=== PATIENT | female | born 1965 | race Caucasian/White ===

== ENCOUNTER → 2019-02-17 12:13 | Outpatient (CLI) | payer OTHER, SELFPAY ==
--- NOTE | 2019-02-17 | DI.RAD.S_ITS ---
PROCEDURE: FL BARIUM SWALLOW INDICATIONS: SCREENING MAMMOGRAM,DYSPHAGIA COMPARISON: None. FINDINGS: Function: There is normal esophageal peristalsis. There was moderate spontaneous and elicited gastroesophageal reflux. Morphology: Air-contrast images demonstrate normal mucosal morphology. Single contrast views show no esophageal strictures, extrinsic mass effects, or diverticula. Limited images of the stomach demonstrate normal appearance. IMPRESSION: Moderate spontaneous and elicited gastroesophageal reflux without esophageal mass or stricture. Dictated by: Gera Patel M.D. on 02/17/2019 at 14:05 Approved by: Gera Patel M.D. on 02/17/2019 at 14:06
--- NOTE | 2019-02-17 | DI.MG.S_ITS ---
BILATERAL DIGITAL SCREENING MAMMOGRAM 3D/2D WITH CAD: 02/17/2019 CLINICAL: Baseline exam. Routine screening. No prior exams were available for comparison. The tissue of both breasts is heterogeneously dense. This may lower the sensitivity of mammography. Current study was also evaluated with a Computer Aided Detection (CAD) system. There are grouped fine calcifications in the right breast at 12 o'clock anterior depth. No other significant masses, calcifications, or other findings are seen in either breast. IMPRESSION: INCOMPLETE: NEEDS ADDITIONAL IMAGING EVALUATION The grouped fine calcifications in the right breast are indeterminate. Spot magnification and additional views are recommended. This exam was interpreted at Station ID: [id number]. NOTE: For mammograms, a report in lay terms will be sent to the patient. Approximately 15% of breast malignancies will not be visualized mammographically. In the management of a palpable breast mass, a negative mammogram must not discourage biopsy of a clinically suspicious lesion. Electronically Signed By: Jocy solorio/shannen:02/17/2019 14:41:06 letter sent: Additional Imaging Needed ACR BI-RADS Category 0: Incomplete 3340F
== END ==
PROVIDERS: Visit Provider Physician Assistant Medical
DX: Z12.31 Encounter for screening mammogram for malignant neoplasm of breast (principal); R13.10 Dysphagia, unspecified; K21.9 Gastro-esophageal reflux disease without esophagitis
CPT/HCPCS: 74220; 77063; 77067

== ENCOUNTER → 2019-02-27 08:33 | Outpatient (CLI) | payer OTHER, SELFPAY ==
--- NOTE | 2019-02-27 | DI.MG.S_ITS ---
UNILATERAL RIGHT DIGITAL DIAGNOSTIC MAMMOGRAM 3D/2D WITH ADDITIONAL VIEWS: 02/27/2019 CLINICAL: Additional evaluation requested from prior study. Comparison is made to exam dated: 02/17/2019 [facility]. The tissue of right breast is heterogeneously dense. This may lower the sensitivity of mammography. There are fine calcifications in the right breast at 12 o'clock middle depth which become less grouped with additional views. Their morphology is fine and dystrophic. No other significant masses or calcifications are seen in the breast. IMPRESSION: PROBABLY BENIGN The calcifications in the right breast are probably benign given their redistribution on additional views. Spot magnification views as well as a follow-up mammogram in 6 months are recommended to demonstrate stability. Findings and recommendations were conveyed to the patient at time of exam. This exam was interpreted at Station ID: [id number]. NOTE: For mammograms, a report in lay terms will be sent to the patient. Approximately 15% of breast malignancies will not be visualized mammographically. In the management of a palpable breast mass, a negative mammogram must not discourage biopsy of a clinically suspicious lesion. Electronically Signed By: Jocy solorio/:02/27/2019 09:14:13 letter sent: Followup Recommended ACR BI-RADS Category 3: Probably benign 3343F
== END ==
PROVIDERS: PCP Physician Assistant Medical; Visit Provider Physician Assistant Medical
DX: R92.8 Other abnormal and inconclusive findings on diagnostic imaging of breast (principal); R92.1 Mammographic calcification found on diagnostic imaging of breast
CPT/HCPCS: 77065; G0279

== ENCOUNTER → 2020-01-15 08:44 | Outpatient (CLI) | payer OTHER, SELFPAY ==
--- NOTE | 2020-01-15 | DI.US.S_ITS ---
PROCEDURE: US PELVIC COMPLETE INDICATIONS: PELVIC PAIN TECHNIQUE: Real-time scanning was performed of the pelvic organs, with image documentation. Additional endovaginal scanning was necessary due to incomplete visualization of the adnexal and endometrial structures by transabdominal scanning. COMPARISON: None. FINDINGS: Transabdominal scanning: Limited scanning through the kidneys shows no hydronephrosis, however, there is a prominent right extrarenal pelvis. Probable nonobstructing calculus is noted within the midpole of the left kidney. Questionable hyperechoic mass most consistent with angiomyolipoma is noted within the upper pole of the left kidney. No pathologic free abdominal or pelvic fluid. Endovaginal scanning: Uterus: Uterus is normal in size at 5.9 x 3.9 x 2.7 cm and has a heterogeneous echotexture. The endometrium measures 4 mm in combined thickness. There is a left posterior subserosal fibroid which measures 2.1 x 1.7 x 1.6 cm and a left posterior intramural fibroid which measures 1.0 x 1.1 x 1.2 cm. There is a heterogeneous 1.1 x 0.7 x 1.6 cm poorly marginated focus within the cervical canal which demonstrates vascularity, although no discrete vascular stalk is noted. Ovaries: The ovaries were not visualized due to overlying bowel gas. IMPRESSION: 1. Questionable endometrial or endocervical polyp as described above. If further characterization is warranted, hysterosonogram could be used. 2. Fibroid uterus. 3. Probable upper pole left angiomyolipoma and nonobstructive nephrolithiasis. Dictated by: aCrmina Zhao M.D. on 01/15/2020 at 12:35 Approved by: Carmina Zhao M.D. on 01/15/2020 at 12:40
--- NOTE | 2020-01-15 | DI.MG.S_ITS ---
BILATERAL DIGITAL DIAGNOSTIC MAMMOGRAM 3D/2D SHORT-TERM FOLLOW-UP: 01/15/2020 CLINICAL: Patient returns for a 6 month follow up of the right breast, due for bilateral exam. Comparison is made to exams dated: 02/27/2019 mammogram and 02/17/2019 mammogram - [facility]. The tissue of both breasts is heterogeneously dense. This may lower the sensitivity of mammography. There are fine calcifications in the right breast at 12 o'clock middle depth. These are not significantly changed. No other significant masses, calcifications, or other findings are seen in either breast. IMPRESSION: PROBABLY BENIGN The fine calcifications in the right breast are probably benign. A follow-up mammogram in 6 months is recommended. A follow-up right mammogram in 6 months is recommended to demonstrate stability. This exam was interpreted at Station ID: [id number]. NOTE: For mammograms, a report in lay terms will be sent to the patient. Approximately 15% of breast malignancies will not be visualized mammographically. In the management of a palpable breast mass, a negative mammogram must not discourage biopsy of a clinically suspicious lesion. Electronically Signed By: Danny Boone M.D. ar/:01/15/2020 09:12:24 letter sent: Followup Recommended ACR BI-RADS Category 3: Probably benign 3343F
== END ==
PROVIDERS: PCP Physician Assistant Medical; Referring Provider Physician Assistant Medical; Visit Provider Physician Assistant Medical
DX: R92.8 Other abnormal and inconclusive findings on diagnostic imaging of breast (principal); R92.1 Mammographic calcification found on diagnostic imaging of breast; R10.2 Pelvic and perineal pain; D25.2 Subserosal leiomyoma of uterus; D25.1 Intramural leiomyoma of uterus
CPT/HCPCS: 76856; 77066; G0279

== ENCOUNTER → 2020-03-02 11:54 | Outpatient (CLI) | payer OTHER, SELFPAY ==
[2020-03-02 13:02] LABS: COVID19 -Nasal RAPID Negative (Negative)
== END ==
PROVIDERS: PCP Physician Assistant Medical; Visit Provider Obstetrics & Gynecology
DX: Z03.818 Encounter for observation for suspected exposure to other biological agents ruled out (principal)
CPT/HCPCS: 87635

== ENCOUNTER 2020-03-04 07:46 | Day surgery (SDC) | payer OTHER, SELFPAY ==
[2020-03-02 12:04] VITALS: BMI 30.2
[2020-03-04] VITALS (9 sets, daily range): BP systolic 92–134; BP diastolic 53–88; PULSE 61–79; RESP 16–20; TEMP 36.3–36.8; O2SAT 94–97; BMI 30.4
--- NOTE | 2020-03-04 | PATH_ITS ---
[facility] Accession Number: [id number] . 01 Material submitted: . uterus - UTERUS AND OVARIES . 01 Clinical history: . OBP . 02 Diagnosis: Uterus and Ovaries, Supracervical Hysterectomy and Bilateral Oophorectomy (Weight 34 grams): Weakly proliferative endometrium with regions of cystic atrophy; negative for glandular hyperplasia, cytologic atypia, or malignancy. Myometrium with multiple intramural and subserosal leiomyomas (2-22 mm in greatest dimension); negative for cytologic atypia or malignancy. Uterine serosa with no significant histomorphologic abnormality. Both ovaries with stromal hyperplasia of uncertain significance. [facility] 03/08/2020 1728 Local . 02 Electronically signed: . Krystal Hernandez MD, Pathologist NPI- [id number] . 01 Gross description: . Received in formalin, labeled uterus and ovaries, and consists of a 34-gram supracervically resected uterus with attached bilateral ovaries. The specimen measures 4.5 cm from the superior fundus to lower uterine segment by 3.5 cm from cornu to cornu by 3.0 cm from anterior to posterior. The serosa is blue-pink, focally hemorrhagic and smooth. Sectioning reveals a 2.0 x 1.0 cm endometrial cavity with a blue-pink glistening to focally ragged endometrium measuring 0.1 cm in thickness. The myometrium is blue-pink and trabeculated measuring 1.0 cm in thickness. There are multiple blue-white whorled leiomyomata ranging from 0.2 to 2.2 cm with no areas of hemorrhage, necrosis or cystic degeneration. The ovaries average 2.5 x 1.5 x 1.0 cm and display a blue-pink cerebriform external surface. Sectioning reveals a blue-pink ovarian stroma. Infantryman sections are submitted. . A1-A2 - lower uterine segment, perpendicular sections. A3-A4 - endomyometrium and serosa. A5-A6 - underwriting account representative leiomyomata. A7-A8 - underwriting account representative ovaries. ([id number]) /MRV 03/05/2020 1444 Local . 02 Pathologist provided ICD-10: R10.2, R10.32, D25.9 . 02 CPT . 643096 Performed at: [facility] [address] [place] [address] [id number] MD Darron Bustillo MD Phone: [phone] Performed at: 02 [facility] [address] [place] [address] [id number] MD Carissa Gutierrez MD Phone: [phone]
[2020-03-04] MEDS: LACTATED RINGERS 1,000 ML 42 ML IV (08:19)
[2020-03-04] MEDS: ACETAMINOPHEN 325 MG TABLET 975 MG PO (08:35)
--- NOTE | 2020-03-04 08:39 | PM.PREOP ---
Pre-operative Note COVID-19 COVID-19 status: Negative Result date/Date tested (Pos, Neg/Pending): 03/02/20 Interval Note History & Physical reviewed/Exam performed by Physician: Yes Changes to H&P: No H&P completed within 30 days and has changed as indicated here:: 03/02/20
[2020-03-04] MEDS: CEFAZOLIN 2 GM/100 ML FROZ.PIGGY IV (08:58)
--- NOTE | 2020-03-04 09:33 | SUR.OPER ---
Lithotomy on padded OR bed. [place] Pad Positioner under torso. Head on pillow, arms padded and tucked at sides. Legs secured in padded yellow fins stirrups.
[2020-03-04] MEDS: BUPIVACAINE 0.5% W/ EPI (PF) 30 ML VIAL INJ (10:07)
[2020-03-04] MEDS: ROPIVACAINE 0.2% PF 2 MG/ML 10ML AMP 20 ML INJ (10:08)
--- NOTE | 2020-03-04 10:55 | P.OP_ITS ---
Operative Date/Time/Diagnoses Date of procedure: 03/04/20 Time of procedure: 10:55 Pre-op diagnosis: Fibroid uterus Left lower quadrant pain Pelvic pain Post-op diagnosis: same Procedure & Clinicians Procedure: Procedures Operation Date: 03/04/20 08:45 Actual Procedures Side Surgeon p Laparoscopic Supracervical Hysterectomy w/ bilateral oophorectomy, lysis of adhesions Kristal Garcia MD Indications: Fibroid uterus Left lower quadrant pain Pelvic Surgeon: Kristal Garcia Bargain Table Clerk: Zonia Vidal Anesthesia Type: General and Local Operative Notes Findings: Five week size multi fibroid uterus. 5 cm pedunculated fibroid off the fundus of the uterus Multiple smaller fibroids off the posterior uterus Normal ovaries Status post removal of both tubes previously Adhesions between colon and the pedunculated fibroid Closure Type: primary Specimen(s): uterus and other (Bilateral ovaries) Applied: catheter (Removed at the end of the case) Estimated blood loss (mL): 20 Blood products transfused: none Procedure in detail: The patient was taken to the operating room where she was placed in the dorsal supine position. After adequate general endotracheal anesthesia was achieved, she was placed in the dorsal lithotomy position, and prepped and draped in the usual sterile fashion. A timeout was performed. A bivalve speculum was placed into the vagina and the anterior lip of the cervix grasped with a single-tooth tenaculum. The cervical os was sequentially dilated until the ZUMI uterine manipulator could pass easily into the endometrial cavity. The single-tooth tenaculum was removed from the anterior lip of the cervix, and the bivalve speculum was removed from the vagina. Attention was then turned to the abdomen where 6 mL of half percent Marcaine with epinephrine were injected in the umbilical fold. A 5 mm incision was made. The veress needle was placed into the peritoneal cavity, and its placement confirmed by aspiration and drop test. The veress needle was removed. A 5 mm trocar was placed without difficulty. 2 other incisions were made midway between the pubic symphysis and umbilicus after 5 mL of half percent Marcaine with epinephrine were injected. These were 5 mm incisions. Two, 5 mm trochars were placed under direct visualization. The right ovary was grasped with an atraumatic grasper. Using the plasma kinetic with settings of 40 W the infundibulopelvic ligament was cauterized and cut. The cornua of the uterus was then grasped with an atraumatic grasper. The round ligament and broad ligament were cauterized and cut with plasma kinetic. Hemostasis was achieved. The bladder flap was created using the plasma kinetic with cautery and cut penitentiary across. The uterine arteries on the right side were extensively cauterized with plasma kinetic. On the left side there were adhesions between the left bowel and the pedunculated fibroid on the fundus of the uterus. Gentle traction was placed on the epiploic appendice, and using the Endo Soheila the bowel was dissected off of the fibroid. There were some adhesions in the left adnexa and these were taken down with the Endo Soheila as well. The left ovary was grasped with an atraumatic grasper. Using the PlasmaKinetic was settings of 40 w, the infundibulopelvic ligament was cauterized and cut. Hemostasis was achieved. The round ligament and broad ligament on the left side were cauterized and cut. The remainder of the bladder flap was created using the plasma kinetic, and the bladder taken down off the lower uterine segment and cervix. Using the [place], the cervix was amputated from the uterus 2 cm above the uterosacral ligaments, after the ZUMI uterine manipulator was removed from the uterus and a moistened sponge stick was placed in the vagina. There was a small amount of bleeding noted from the posterior edge of the cervix, and this was cauterized for hemostasis. The endocervical canal was extensively cauterized with PlasmaKinetic. 6 cc of half percent M arcaine with epinephrine were injected above the pubic symphysis. A 12mm incision was made. A 12 mm trocar was placed under direct visualization. An Endobag was placed through the suprapubic trocar and the uterus and ovaries were placed into the Endobag. The Kameron was placed into the endobag. The uterus and ovaries were morcellated in approximately 2 pieces. The Endobag was removed from the peritoneal cavity with the Kameron. The pelvis was copiously irrigated with warm normal saline. No bleeding was noted. 20 mL of 0.2% ropivacaine were placed over the pelvic pedicles. The instruments were removed from the abdomen. The CO2 was allowed to escape. The suprapubic incision was closed on the fascia with 0 Vicryl. The subcutaneous layer was closed with 2 simple rupture with 3-0 Vicryl. All of the incisions were closed with 4-0 Biosyn in a subcuticular fashion. Steri strips, and Avellyn dressings were placed over the incisions. The moistened sponge stick was removed from the vagina. Sponge, lap, and instrument counts were correct x 2. The patient tolerated the procedure well, was taken to PACU in stable condition. Complications: none Post-operative Condition: stable Disposition: PACU Plan for aftercare: Home after recovery
--- NOTE | 2020-03-04 11:36 | SUR.PHASEII ---
verbal order from dr. ramos for pt. to go home with IS
== END 2020-03-04 13:15 | disposition home or self-care (01) ==
LOC: OR 07:47 → AC 10:55
PROVIDERS: PCP Physician Assistant Medical; Referring Provider Physician Assistant Medical; Visit Provider Obstetrics & Gynecology
PROC: 0UT94ZL Resection of Uterus, Supracervical, Percutaneous Endoscopic Approach (ICD-10-PCS; CPT 58542; principal; 2020-03-04 08:45)
DX: D25.2 Subserosal leiomyoma of uterus (principal); D25.1 Intramural leiomyoma of uterus; K21.9 Gastro-esophageal reflux disease without esophagitis; F41.9 Anxiety disorder, unspecified; F32.9 Major depressive disorder, single episode, unspecified; N73.6 Female pelvic peritoneal adhesions (postinfective)
CPT/HCPCS: 58542; J0330; J0690; J1100; J1885; J2250; J2405; J2704; J2795; J3010

== ENCOUNTER → 2020-12-09 08:46 | Outpatient (CLI) | payer OTHER, SELFPAY ==
--- NOTE | 2020-12-09 08:48 | DI.MG.S_ITS ---
BILATERAL DIGITAL DIAGNOSTIC MAMMOGRAM 3D/2D: 12/09/2020 CLINICAL: Short term follow up of the right breast, due for bilateral imaging. Comparison is made to exams dated: 01/15/2020 mammogram, 02/27/2019 mammogram, and 02/17/2019 mammogram - [facility]. The tissue of both breasts is heterogeneously dense. This may lower the sensitivity of mammography. There is a fine calcification in the right breast at 12 o'clock middle depth. This is not significantly changed. No other significant masses, calcifications, or other findings are seen in either breast. IMPRESSION: BENIGN The fine grouped calcifications in the right breast is probably benign. There is no mammographic evidence of malignancy. Return to annual mammogram screening schedule is recommended. This exam was interpreted at Station ID: [id number]. NOTE: For mammograms, a report in lay terms will be sent to the patient. Approximately 15% of breast malignancies will not be visualized mammographically. In the management of a palpable breast mass, a negative mammogram must not discourage biopsy of a clinically suspicious lesion. Electronically Signed By: Jese Dorsey M.D. jr/:12/09/2020 09:29:08 letter sent: Normal Exam ACR BI-RADS Category 2: Benign Finding(s) 3342F
== END ==
PROVIDERS: PCP Family Medicine; Referring Provider Family Medicine; Visit Provider Family Medicine
DX: R92.1 Mammographic calcification found on diagnostic imaging of breast (principal)
CPT/HCPCS: 77066; G0279

== ENCOUNTER 2021-08-14 10:56 | Emergency (ER) | payer OTHER, SELFPAY ==
[2021-08-14] VITALS (15 sets, daily range): BP systolic 170–195; BP diastolic 88–118; PULSE 65–97; RESP 16; TEMP 36.1; O2SAT 94–98; BMI 31.3
[2021-08-14 11:31] LABS: Add Manual Diff / Slide Review NO; Basophils Absolute Auto 0 /uL (0-100); Basophils Percent Auto 0.4 % (0-2); Eosinophils Absolute Auto 0 /uL (0-450); Eosinophils Percent Auto 0.1 % (2-4); Hematocrit 42.1 % (36-46); Hemoglobin 14.6 g/dL (12.0-16.0); Lymphocytes Absolute Auto 800 /uL (1100-4500); Lymphocytes Percent Auto 6.8 % (25-40); Mean Corpuscular HGB Conc 34.6 % (30-36); Mean Corpuscular Volume 92.5 fL (80-100); Monocytes Absolute Auto 200 /uL (0-900); Monocytes Percent Auto 1.7 % (3-14); Neutrophils Absolute Auto 11000 /uL (1500-7000); Platelet Count 322 X10^3/uL (150-400); Red Blood Cell Count 4.55 X10^6/uL (4.0-5.2); White Blood Cell Count 12.1 X10^3/uL (4.5-11.0)
--- NOTE | 2021-08-14 11:34 | ED.CHESTPAIN ---
HPI - Chest Pain General Chief Complaint: Chest Pain Stated Complaint: Vomiting, chest pain when breathing in Time Seen by Provider: 08/14/21 11:29 Source: patient Mode of arrival: Ambulatory Limitations: no limitations History of Present Illness HPI narrative: Patient is a 55-year-old female with history of depression anxiety and seasonal allergies presenting today with 24 hours of vomiting and diarrhea. She says she has cyst on the toilet is every time she vomits she has liquid diarrhea. Nonbloody. She feel dizzy and lightheaded. She feels like she is having some left-sided chest pain and burning every time she breathes in. She is unable to tolerate anything. She has had a number of years ago she had a cholecystectomy for similar problem which has not really had any issues since. She denies any fever or chills. No recent travel. Related Data Home Medications Medication Instructions Recorded Confirmed cyclobenzaprine 5 mg tablet 5 mg PO BEDTIME 01/27/20 06/22/21 loratadine 10 mg capsule 10 mg PO DAILY 01/27/20 06/22/21 omeprazole 20 mg capsule,delayed 20 mg PO DAILY 01/27/20 06/22/21 release Previous Rx's Medication Instructions Recorded ondansetron 4 mg disintegrating 4 mg PO Q6H PRN #14 tab 03/29/20 tablet varenicline 0.5 mg (11)-1 mg (42) See Rx Instructions PO PER PKG DIR 07/23/20 tablets in a dose pack (Elderscantix #53 ea Starting Month Box) hydroxyzine HCl 25 mg tablet See Rx Instructions .ROUTE 11/19/20 .COMPLEX #60 tab escitalopram oxalate 20 mg tablet 10 mg PO DAILY #90 tab 04/11/21 alprazolam 0.5 mg tablet See Rx Instructions .ROUTE 07/25/21 .COMPLEX #30 tab metoclopramide HCl 10 mg tablet 10 mg PO Q6H PRN #20 tab 08/14/21 (Reglan) ondansetron 4 mg disintegrating 4 mg PO Q8H PRN #10 tab 08/14/21 tablet Allergies Allergy/AdvReac Type Severity Reaction Status Date / Time Sulfa (Sulfonamide Allergy Verified 06/22/21 12:39 Antibiotics) Review of Systems Review of Systems Narrative: GENERAL: Denies chills, fatigue, malaise, fever, sweats, travel HEENT: Denies sinus pain, ear pain, sore throat, difficulty swallowing, neck pain RESPIRATORY: Denies dyspnea, cough, wheezing, hemoptysis, sputum. CARDIOVASCULAR: Denies chest pain, palpitations, orthopnea, edema GASTROINTESTINAL: see HPI : Denies dysuria, frequency, incontinence, hematuria, urinary retention, flank pain. MUSCULOSKELETAL: Denies weakness, joint pain, or bony pain SKIN: No rash, no erythema, no pruritus NEUROLOGIC: Denies weakness, dizziness, headache, numbness, change in speech, confusion PSYCHIATRIC: No concerning psychosocial issues. 12 point review of systems is negative except for those stated above and HPI Patient History Medical History Allergies Anxiety Chronic back pain Current smoker Depression GERD (gastroesophageal reflux disease) Surgical History H/O carpal tunnel repair H/O oral surgery History of laparotomy Hx laparoscopic cholecystectomy Social History household members: spouse Smoking Status: Current every day smoker alcohol intake: current Smoking Status: Current every day smoker alcohol intake frequency: holidays/special occasions only Substance Use Type: does not use Exam Initial Vital Signs Initial Vital Signs: Vital Signs Pulse Rate 72 08/14/21 11:19 Pulse Oximetry 97 08/14/21 11:19 GENERAL: Alert 55-year-old female appears uncomfortable in no acute distress. HEENT: Head atraumatic,EOMI, pupils reactive, face symmetric, moist mucous membranes CARDIOVASCULAR: Regular rate and rhythm without murmurs, rubs or gallops. RESPIRATORY: Breath sounds equal bilaterally, no wheezes rales or rhonchi. ABDOMEN: Soft, nontender. Normoactive bowel sounds all 4 quadrants. No guarding or rebound. EXTREMITIES: Normal range of motion, no clubbing or edema. Neurovascularly intact NEUROLOGICAL: Alert and oriented x4 SKIN: Warm, dry, no laceration, no petechiae, no rashes or lesions. Course Orders Ordered: ED Orders 08/14/21 10:30 Troponin & CK Cardiac Panel Stat 08/14/21 11:20 Complete Blood Count AUTO DIFF Stat Comprehensive Metabolic Panel Stat Lipase Stat 08/14/21 11:27 EKG-12 Lead Stat 08/14/21 11:42 Chest [XR chest 1V] Stat 08/14/21 14:48 Urine Culture Stat Urine Microscopic Stat Discontinued Medications Sodium Chloride (Normal Saline 0.9%) 1,000 mls @ 1,000 mls/hr IV BOLUS ONE Stop: 08/14/21 12:41 Last Infusion: 08/14/21 15:32 Dose: 0 mls/hr Documented by: Admin: 08/14/21 11:48 Dose: 1,000 mls/hr Documented by: ELAYNE Ketorolac Tromethamine (Ketorolac 30 Mg/Ml Vial) 15 mg IV NOW ONE Stop: 08/14/21 12:47 Last Admin: 08/14/21 12:52 Dose: 15 mg Documented by: ELAYNE Ketorolac Tromethamine (Ketorolac 30 Mg/Ml Vial) 15 mg IV NOW ONE Stop: 08/14/21 13:56 Last Admin: 08/14/21 14:08 Dose: 15 mg Documented by: ELAYNE Metoclopramide HCl (Metoclopramide 10 Mg/2 Ml Inj) 10 mg IV NOW ONE Stop: 08/14/21 13:56 Last Admin: 08/14/21 14:08 Dose: 10 mg Documented by: ELAYNE Morphine Sulfate (Morphine 2 Mg/Ml Inj) 2 mg IV NOW ONE Stop: 08/14/21 14:16 Last Admin: 08/14/21 14:25 Dose: 2 mg Documented by: ELAYNE Morphine Sulfate (Morphine 2 Mg/Ml Inj) 2 mg IV NOW ONE Stop: 08/14/21 15:23 Last Admin: 08/14/21 15:33 Dose: 2 mg Documented by: ELAYNE Ondansetron HCl (Ondansetron 4 Mg/2 Ml Inj) 4 mg IV NOW ONE Stop: 08/14/21 11:27 Last Admin: 08/14/21 11:44 Dose: Not Given Documented by: ELAYNE Ondansetron HCl (Ondansetron 4 Mg/2 Ml Inj) 4 mg IV NOW ONE Stop: 08/14/21 11:43 Last Admin: 08/14/21 11:48 Dose: 4 mg Documented by: ELAYNE Pantoprazole Sodium (Pantoprazole 40 Mg Vial) 40 mg IV NOW ONE Stop: 08/14/21 11:43 Last Admin: 08/14/21 11:48 Dose: 40 mg Documented by: ATAYLOR Vital Signs Vital signs: Vital Signs - 8 hr 08/14/21 11:19 08/14/21 11:23 08/14/21 11:30 Temperature 97 F L Pulse Rate 72 65 72 Respiratory Rate 16 Blood Pressure 195/90 H Pulse Oximetry 97 98 98 08/14/21 11:56 08/14/21 12:00 08/14/21 12:30 Temperature Pulse Rate 71 81 78 Respiratory Rate Blood Pressure 170/118 H Pulse Oximetry 98 98 96 08/14/21 13:00 08/14/21 13:30 08/14/21 14:00 Temperature Pulse Rate 75 68 85 Respiratory Rate Blood Pressure Pulse Oximetry 98 96 97 08/14/21 14:15 08/14/21 14:30 08/14/21 15:00 Temperature Pulse Rate 74 97 H 78 Respiratory Rate Blood Pressure 191/99 H Pulse Oximetry 98 96 95 08/14/21 15:30 08/14/21 15:54 08/14/21 15:55 Temperature Pulse Rate 80 84 Respiratory Rate Blood Pressure 177/88 H Pulse Oximetry 94 94 MDM - Chest Pain Lab Data Result diagrams: 08/14/21 11:20 08/14/21 11:20 Labs: Lab Results 08/14/21 08/14/21 08/14/21 Range/Units 10:30 11:20 11:20 WBC 12.1 H (4.5-11.0) X10^3/uL RBC 4.55 (4.0-5.2) X10^6/uL Hgb 14.6 (12.0-16.0) g/dL Hct 42.1 (36-46) % MCV 92.5 (80-100) fL MCH 32.0 (26-34) PG MCHC 34.6 (30-36) % RDW 14.0 (11.6-14.8) % Plt Count 322 (150-400) X10^3/uL Neut % (Auto) 91.0 H (50-75) % Lymph % (Auto) 6.8 L (25-40) % [place] % (Auto) 1.7 L (3-14) % Eos % (Auto) 0.1 L (2-4) % Baso % (Auto) 0.4 (0-2) % Neut # (Auto) 93987 H (2560-1322) /uL Lymph # (Auto) 800 L (0071-9821) /uL [place] # (Auto) 200 (0-900) /uL Eos # (Auto) 0 (0-450) /uL Baso # (Auto) 0 (0-100) /uL Sodium 138 (137-145) mmol/L Potassium 4.2 (3.4-5.1) mmol/L Chloride 105 (98-107) mmol/L Carbon Dioxide 24 (22-32) mmol/L BUN 11 (7-17) mg/dL Creatinine 0.48 L (0.52-1.04) mg/dL Estimated GFR > 60 (>60) mL/min BUN/Creatinine Ratio 22.9 H (6-22) Glucose 143 H (70-100) mg/dL Calcium 9.7 (8.4-10.2) mg/dL Total Bilirubin 0.4 (0.2-1.3) mg/dL AST 39 H (14-36) IU/L ALT 31 (<35) IU/L Alkaline Phosphatase 101 (38-126) U/L Total Creatine Kinase 116 (30-135) U/L CK-MB (CK-2) 3.49 H (<2.37) ng/mL CK-MB (CK-2) Rel Index 3.0 (1.5-5.0) % Troponin I < 0.012 (0.01-0.034) ng/mL Total Protein 8.7 H (6.3-8.2) g/dL Albumin 5.0 (3.5-5.0) g/dL Globulin 3.7 (1.7-4.1) g/dL Albumin/Globulin Ratio 1.4 (1.0-2.8) Lipase 51 (23-300) U/L Urine RBC (0-5/HPF) Urine WBC (0-5/HPF) Ur Squamous Epith Cells (0-5/HPF) Amorphous Sediment Urine Bacteria (None) Urine Mucus (Negative) Ur Culture Indicated? 08/14/21 Range/Units 14:48 WBC (4.5-11.0) X10^3/uL RBC (4.0-5.2) X10^6/uL Hgb (12.0-16.0) g/dL Hct (36-46) % MCV (80-100) fL MCH (26-34) PG MCHC (30-36) % RDW (11.6-14.8) % Plt Count (150-400) X10^3/uL Neut % (Auto) (50-75) % Lymph % (Auto) (25-40) % [place] % (Auto) (3-14) % Eos % (Auto) (2-4) % Baso % (Auto) (0-2) % Neut # (Auto) (7591-7877) /uL Lymph # (Auto) (4192-5269) /uL [place] # (Auto) (0-900) /uL Eos # (Auto) (0-450) /uL Baso # (Auto) (0-100) /uL Sodium (137-145) mmol/L Potassium (3.4-5.1) mmol/L Chloride (98-107) mmol/L Carbon Dioxide (22-32) mmol/L BUN (7-17) mg/dL Creatinine (0.52-1.04) mg/dL Estimated GFR (>60) mL/min BUN/Creatinine Ratio (6-22) Glucose (70-100) mg/dL Calcium (8.4-10.2) mg/dL Total Bilirubin (0.2-1.3) mg/dL AST (14-36) IU/L ALT (<35) IU/L Alkaline Phosphatase (38-126) U/L Total Creatine Kinase (30-135) U/L CK-MB (CK-2) (<2.37) ng/mL CK-MB (CK-2) Rel Index (1.5-5.0) % Troponin I (0.01-0.034) ng/mL Total Protein (6.3-8.2) g/dL Albumin (3.5-5.0) g/dL Globulin (1.7-4.1) g/dL Albumin/Globulin Ratio (1.0-2.8) Lipase (23-300) U/L Urine RBC 10-30/hpf H (0-5/HPF) Urine WBC None seen (0-5/HPF) Ur Squamous Epith Cells 1-5 /hpf (0-5/HPF) Amorphous Sediment 3+ Urine Bacteria Occasional (0-1) (None) Urine Mucus 1+ H (Negative) Ur Culture Indicated? Specimen cultured Point of Care Testing Test Results Negative Urine Dip Bedside Urine Glucose Negative Bedside Urine Bilirubin - Negative Bedside Urine Ketone +++ 80 Urine Specific [place] 1.015 Bedside Urine Occult Blood + Bedside Urine pH 6.5 Bedside Urine Protein - Negative Bedside Urine Urobilinogen - Negative Bedside Urine Leukocytes - Negative Esterase ECG Data Interpretation: NORMAL SINUS RHYTHM RATE 71 W[place] INTERVAL 162 QRS [address] CHANGES T-WAVE INVERSION NOTED IN LEAD 3, V3 no priors MDM Narrative Medical decision making narrative: Patient initially still feeling very nauseous for 2 rounds of Zofran. She is given Protonix. Still having despite Toradol however morphine seems to help. She is tolerating ice chips. She has no real abdominal pain. He has symptoms consistent with a gastroenteritis of vomiting and diarrhea. Discussed oral rehydration techniques with her. She has previously had Zofran she tried to take it before she arrived she said it did not work. She is given Zofran and Reglan to try at. At this time I do not see need for imaging. Discharge Plan Departure Patient Disposition: Home Clinical Impression: Gastroenteritis Instructions: DI for Viral Gastroenteritis -- Adult Activity Restrictions/Additional Instructions: *You have been diagnosed with gastroenteritis *What to do: Increase fluid intake, recommend Gatorade or Gatorade like product. Broth, Jell-O, small sips frequently. *Continue to take medications as directed--> [facility] Zofran 4 mg every 8 hours if needed for nausea or vomiting Reglan 5 mg every 6 hours if needed for nausea vomiting *Follow up with your primary care provider in 2-3 days or call [phone] *Return to ER if you should have persistent vomiting, increasing pain, inability to tolerate fluids, dizziness, lightheadedness or any new, worsening or concerning symptoms Prescriptions: New ondansetron 4 mg tablet,disintegrating 4 mg PO Q8H PRN (Reason: nausea and vomiting) Qty: 10 0RF metoclopramide HCl [Reglan] 10 mg tablet 10 mg PO Q6H PRN (Reason: nausea and vomiting) Qty: 20 0RF No Action hydroxyzine HCl 25 mg tablet See Rx Instructions .ROUTE .COMPLEX Qty: 60 0RF Dose Instruction: TAKE 1 TABLET BY MOUTH AT BEDTIME NEEDED FOR SLEEP OR ANXIETY Rx Instructions: TAKE 1 TABLET BY MOUTH AT BEDTIME NEEDED FOR SLEEP OR ANXIETY escitalopram oxalate 20 mg tablet 10 mg PO DAILY Qty: 90 3RF alprazolam 0.5 mg tablet See Rx Instructions .ROUTE .COMPLEX Qty: 30 0RF Dose Instruction: TAKE 1 TABLET BY MOUTH DAILY NEEDED FOR ANXIETY Rx Instructions: TAKE 1 TABLET BY MOUTH DAILY NEEDED FOR ANXIETY ondansetron 4 mg tablet,disintegrating 4 mg PO Q6H PRN (Reason: nausea and vomiting) Qty: 14 0RF cyclobenzaprine 5 mg tablet 5 mg PO BEDTIME 0RF omeprazole 20 mg capsule,delayed release(DR/EC) 20 mg PO DAILY 0RF loratadine 10 mg capsule 10 mg PO DAILY 0RF Chantix Starting Month Box 0.5 mg (11)- 1 mg (42) tablets,dose pack See Rx Instructions PO PER PKG DIR Qty: 53 0RF Rx Instructions: PO PER PKG DIR Referrals: Juan Joseph MD [Primary Care Provider] -
[2021-08-14 11:38] LABS: Alanine Aminotransferase 31 IU/L (<35); Albumin Globulin Ratio 1.4 (1.0-2.8); Alkaline Phosphatase 101 U/L (38-126); Aspartate Aminotransferase 39 IU/L (14-36); BUN Creatinine Ratio 22.9 (6-22); Bilirubin Total 0.4 mg/dL (0.2-1.3); Blood Urea Nitrogen 11 mg/dL (7-17); Calcium 9.7 mg/dL (8.4-10.2); Carbon Dioxide 24 mmol/L (22-32); Chloride 105 mmol/L (98-107); Estimated Glomerular Filt Rate > 60 mL/min (>60); Globulin 3.7 g/dL (1.7-4.1); Glucose 143 mg/dL (70-100); HEMOLYSIS 18 (0-50); Lipase 51 U/L (23-300); Potassium 4.2 mmol/L (3.4-5.1); Sodium 138 mmol/L (137-145); Total Protein 8.7 g/dL (6.3-8.2)
--- NOTE | 2021-08-14 11:42 | DI.RAD.S_ITS ---
PROCEDURE: XR CHEST 1V INDICATIONS: chest pain TECHNIQUE: One view of the chest was acquired. COMPARISON: None. FINDINGS: Surgical changes and devices: None. Lungs and pleura: Right medial basilar atelectasis and/or infiltrate Mediastinum: Mediastinal contours appear normal. Heart size is normal. Bones and chest wall: No suspicious bony lesions. Overlying soft tissues appear unremarkable. IMPRESSION: Right basilar medial atelectasis and or infiltrate Approved by: Vasquez Maldonado M.D. on 08/14/2021 at 11:45
[2021-08-14] MEDS: PANTOPRAZOLE 40 MG VIAL IV (11:48)
[2021-08-14] MEDS: ONDANSETRON 4 MG/2 ML INJ IV (11:48)
[2021-08-14] MEDS: SODIUM CHLORIDE 0.9% 1,000 ML 1000 ML IV (11:48)
[2021-08-14 11:53] LABS: Creatine Kinase 116 U/L (30-135)
[2021-08-14 12:06] LABS: Troponin I < 0.012 ng/mL (0.01-0.034)
[2021-08-14 12:08] LABS: Creatine Kinase MB 3.49 ng/mL (<2.37)
[2021-08-14] MEDS: KETOROLAC 30 MG/ML VIAL 15 MG IV ×2 (12:52→14:08)
[2021-08-14] MEDS: METOCLOPRAMIDE 10 MG/2 ML INJ IV (14:08)
[2021-08-14] MEDS: MORPHINE 2 MG/ML INJ IV ×2 (14:25→15:33)
[2021-08-14 15:02] LABS: Amorphous Sediment Urine 3+; Bacteria Urine Occasional (0-1); Culture Indicated Urine Specimen Cultured; Mucus Urine 1+ (Negative); RBC Urine 10-30/HPF (0-5/HPF); Squamous Epithelial Cell Urine 1-5 /HPF (0-5/HPF); WBC Urine None Seen (0-5/HPF)
--- NOTE | 2021-08-14 15:19 | PC.NURSE ---
Pt reports improvement in pain but it's starting to come back and improvement N/V. Dr. Bowser notified.
== END 2021-08-14 15:59 | disposition home or self-care (01) ==
PROVIDERS: Emergency Provider Emergency Medicine; PCP Family Medicine
DX: K52.9 Noninfective gastroenteritis and colitis, unspecified (principal); R11.10 Vomiting, unspecified; R42 Dizziness and giddiness; R07.9 Chest pain, unspecified
CPT/HCPCS: 36415; 71045; 80053; 81003; 81015; 81025; 82550; 82553; 83690; 84484; 85025; 87086; 93005; 96361; 96374; 96375; 96376; 99284; C9113; J1885; J2270; J2405; J2765

== ENCOUNTER 2021-08-16 08:47 | Emergency (ER) | payer OTHER, SELFPAY ==
[2021-08-16] VITALS (11 sets, daily range): BP systolic 165–181; BP diastolic 77–100; PULSE 71–80; RESP 21–27; TEMP 36.9; O2SAT 94–97; BMI 28.6
--- NOTE | 2021-08-16 09:31 | ED.NAVMDI ---
HPI - Nausea/Vomiting/Diarrhea General Chief complaint: Nausea/Vomiting/Diarrhea Stated complaint: stomache flu, cant keep anything down day four Time Seen by Provider: 08/16/21 09:14 Source: patient Mode of arrival: Family Vehicle Related Data Home Medications Medication Instructions Recorded Confirmed cyclobenzaprine 5 mg tablet 5 mg PO BEDTIME 01/27/20 06/22/21 loratadine 10 mg capsule 10 mg PO DAILY 01/27/20 06/22/21 omeprazole 20 mg capsule,delayed 20 mg PO DAILY 01/27/20 06/22/21 release Previous Rx's Medication Instructions Recorded ondansetron 4 mg disintegrating 4 mg PO Q6H PRN #14 tab 03/29/20 tablet varenicline 0.5 mg (11)-1 mg (42) See Rx Instructions PO PER PKG DIR 07/23/20 tablets in a dose pack (Chantix #53 ea Starting Month Box) hydroxyzine HCl 25 mg tablet See Rx Instructions .ROUTE 11/19/20 .COMPLEX #60 tab escitalopram oxalate 20 mg tablet 10 mg PO DAILY #90 tab 04/11/21 alprazolam 0.5 mg tablet See Rx Instructions .ROUTE 07/25/21 .COMPLEX #30 tab metoclopramide HCl 10 mg tablet 10 mg PO Q6H PRN #20 tab 08/14/21 (Reglan) ondansetron 4 mg disintegrating 4 mg PO Q8H PRN #10 tab 08/14/21 tablet Allergies Allergy/AdvReac Type Severity Reaction Status Date / Time Sulfa (Sulfonamide Allergy Verified 06/22/21 12:39 Antibiotics) Patient History Medical History Allergies Anxiety Chronic back pain Current smoker Depression GERD (gastroesophageal reflux disease) Surgical History H/O carpal tunnel repair H/O oral surgery History of laparotomy Hx laparoscopic cholecystectomy Social History household members: spouse Smoking Status: Current every day smoker alcohol intake: current Smoking Status: Current every day smoker alcohol intake frequency: holidays/special occasions only Substance Use Type: marijuana Exam Initial Vital Signs Initial Vital Signs: Vital Signs Temperature 98.4 F 08/16/21 09:10 Pulse Rate 80 08/16/21 09:10 Respiratory Rate 22 08/16/21 09:10 Blood Pressure 177/100 H 08/16/21 09:10 Pulse Oximetry 96 08/16/21 09:10 Course Vital Signs Vital signs: Vital Signs - 8 hr 08/16/21 09:10 Temperature 98.4 F Pulse Rate 80 Respiratory Rate 22 Blood Pressure 177/100 H Pulse Oximetry 96 Discharge Plan Departure Prescriptions: No Action hydroxyzine HCl 25 mg tablet See Rx Instructions .ROUTE .COMPLEX Qty: 60 0RF Dose Instruction: TAKE 1 TABLET BY MOUTH AT BEDTIME NEEDED FOR SLEEP OR ANXIETY Rx Instructions: TAKE 1 TABLET BY MOUTH AT BEDTIME NEEDED FOR SLEEP OR ANXIETY escitalopram oxalate 20 mg tablet 10 mg PO DAILY Qty: 90 3RF alprazolam 0.5 mg tablet See Rx Instructions .ROUTE .COMPLEX Qty: 30 0RF Dose Instruction: TAKE 1 TABLET BY MOUTH DAILY NEEDED FOR ANXIETY Rx Instructions: TAKE 1 TABLET BY MOUTH DAILY NEEDED FOR ANXIETY ondansetron 4 mg tablet,disintegrating 4 mg PO Q6H PRN (Reason: nausea and vomiting) Qty: 14 0RF cyclobenzaprine 5 mg tablet 5 mg PO BEDTIME 0RF omeprazole 20 mg capsule,delayed release(DR/EC) 20 mg PO DAILY 0RF loratadine 10 mg capsule 10 mg PO DAILY 0RF Chantix Starting Month Box 0.5 mg (11)- 1 mg (42) tablets,dose pack See Rx Instructions PO PER PKG DIR Qty: 53 0RF Rx Instructions: PO PER PKG DIR ondansetron 4 mg tablet,disintegrating 4 mg PO Q8H PRN (Reason: nausea and vomiting) Qty: 10 0RF metoclopramide HCl [Reglan] 10 mg tablet 10 mg PO Q6H PRN (Reason: nausea and vomiting) Qty: 20 0RF Referrals: Juan Joseph MD [Primary Care Provider] -
--- NOTE | 2021-08-16 09:32 | ED.GENADULT ---
HPI - General Adult General Chief complaint: Nausea/Vomiting/Diarrhea Stated complaint: stomache flu, cant keep anything down day four Time Seen by Provider: 08/16/21 09:14 Source: patient Mode of arrival: Family Vehicle History of Present Illness HPI narrative: 55-year-old woman with a history of depression, seasonal allergies presents with the 2nd ER visit for nausea and vomiting that is continuing. She initially noted symptoms on the with abrupt onset nausea rather violent vomiting followed by a ?thunderclap? headache over the occiput. Continued to vomit throughout that day. The next day she felt better however the evening of the she again began vomiting and continued to vomit all night. Throughout this time frame headache has waxed and waned but has not been to the severity that she initially experienced. She describes that as mainly neck pain that seems to be related to the physical act of vomiting. No visual changes no nuchal rigidity, no fevers. Symptoms have continued over the ensuing 3 days. She states this has happened before. Previously was related to gallbladder this high before that was a stomach virus. Was seen in the emergency department on the with unremarkable labs, rehydration, multiple doses of Zofran and was able to tolerate ice chips. She was discharged home with the 2 doses of Zofran which have not proved helpful. She denies significant marijuana use. She states she did try smoking during this interval to see if it help with the nausea and it did not. Additional complaint is a total body rash. It has been present for number of months. Extremely dry skin with areas of excoriation over her upper arms upper back lower back not involving her abdomen or thighs. She has been on prednisone in the past, she currently is using triamcinolone and Eucerin cream. She has seen a anthropology instructor with biopsy done was told ?it was nothing?. She denies any methamphetamine use. She has no facial lesions. Some of the lesions have some mild surrounding erythema but none are significantly infected at this time. Related Data Home Medications Medication Instructions Recorded Confirmed cyclobenzaprine 5 mg tablet 5 mg PO BEDTIME 01/27/20 06/22/21 loratadine 10 mg capsule 10 mg PO DAILY 01/27/20 06/22/21 omeprazole 20 mg capsule,delayed 20 mg PO DAILY 01/27/20 06/22/21 release Previous Rx's Medication Instructions Recorded ondansetron 4 mg disintegrating 4 mg PO Q6H PRN #14 tab 03/29/20 tablet varenicline 0.5 mg (11)-1 mg (42) See Rx Instructions PO PER PKG DIR 07/23/20 tablets in a dose pack (Chantix #53 ea Starting Month Box) hydroxyzine HCl 25 mg tablet See Rx Instructions .ROUTE 11/19/20 .COMPLEX #60 tab escitalopram oxalate 20 mg tablet 10 mg PO DAILY #90 tab 04/11/21 alprazolam 0.5 mg tablet See Rx Instructions .ROUTE 07/25/21 .COMPLEX #30 tab metoclopramide HCl 10 mg tablet 10 mg PO Q6H PRN #20 tab 08/14/21 (Reglan) ondansetron 4 mg disintegrating 4 mg PO Q8H PRN #10 tab 08/14/21 tablet hydromorphone 2 mg tablet 2 mg PO Q6H PRN #10 tab 08/16/21 (Dilaudid) hydroxyzine HCl 25 mg tablet 25 mg PO TID PRN #20 tab 08/16/21 ondansetron 4 mg disintegrating 4 mg PO Q8H PRN #14 tab 08/16/21 tablet Allergies Allergy/AdvReac Type Severity Reaction Status Date / Time Sulfa (Sulfonamide Allergy Verified 06/22/21 12:39 Antibiotics) Review of Systems Review of Systems Narrative: Remainder of complete review of systems is otherwise unremarkable except for that included in the HPI. Cardiovascular Cardiovascular: Denies chest pain, Denies syncope, Denies rapid heart rate, Denies edema, Denies irregular heart rhythm, Denies lightheadedness and Denies palpitations Neurologic Neurologic: Denies syncope Endocrine Endocrine: Denies palpitations Patient History Medical History Allergies Anxiety Chronic back pain Current smoker Depression GERD (gastroesophageal reflux disease) Surgical History H/O carpal tunnel repair H/O oral surgery History of laparotomy Hx laparoscopic cholecystectomy Social History household members: spouse Smoking Status: Current every day smoker alcohol intake: current Smoking Status: Current every day smoker alcohol intake frequency: holidays/special occasions only Substance Use Type: marijuana Exam Initial Vital Signs Initial Vital Signs: Vital Signs Pulse Rate 77 08/16/21 09:08 Pulse Oximetry 96 08/16/21 09:08 General: Healthy appearing, in no acute distress. Able to give a complete and coherent history. Well-nourished well-developed despite complaints of prolific continued emesis. HEENT: Moist mucous membranes, normal sclera with reactive pupils, Neck: supple, tender at bilateral occipital insertion, no nuchal rigidity Respiratory: Lungs are clear to auscultation, no wheezing no rales no rhonchi. Full and symmetrical air movement Cardiac: Regular rate and rhythm no murmurs no bruits Abdomen: Soft, nontender, good bowel tones, no flank pain Skin: Warm and dry, areas of dry skin with excoriation and small lesion secondary to scratching without secondary infection. She does have well-healed scars over her skin from prior lesions. Neurologic: Grossly neurologically intact with no obvious asymmetries or abnormalities Extremities: No trauma, well perfused Psych: Cooperative, appropriate insight and affect Course Orders Ordered: ED Orders 08/16/21 09:55 Complete Blood Count AUTO DIFF Stat Comprehensive Metabolic Panel Stat Lipase Stat Magnesium Stat 08/16/21 10:00 COVID19 -Nasal RAPID/Pre-Proc Stat 08/16/21 11:13 CT abdomen pelvis w con Stat 08/16/21 12:00 Urine Microscopic Stat Discontinued Medications Diphenhydramine HCl (Diphenhydramine 50 Mg/Ml Vial) 25 mg IV NOW ONE Stop: 08/16/21 09:47 Last Admin: 08/16/21 10:21 Dose: 25 mg Documented by: MICHAELA Hydromorphone HCl (Hydromorphone 2 Mg Tablet) 2 mg PO NOW ONE Stop: 08/16/21 13:37 Last Admin: 08/16/21 13:43 Dose: 2 mg Documented by: MICHAELA Sodium Chloride (Normal Saline 0.9%) 1,000 mls @ 1,000 mls/hr IV BOLUS ONE Stop: 08/16/21 10:45 Last Infusion: 08/16/21 12:40 Dose: 0 mls/hr Documented by: Admin: 08/16/21 10:22 Dose: 1,000 mls/hr Documented by: MICHAELA Metoclopramide HCl (Metoclopramide 10 Mg/2 Ml Inj) 10 mg IV NOW ONE Stop: 08/16/21 09:47 Last Admin: 08/16/21 10:21 Dose: 10 mg Documented by: MICHAELA Ondansetron HCl (Ondansetron 4 Mg/2 Ml Inj) 4 mg IV NOW ONE Stop: 08/16/21 11:18 Last Admin: 08/16/21 11:29 Dose: 4 mg Documented by: MICHAELA Pantoprazole Sodium (Pantoprazole 40 Mg Vial) 40 mg IV NOW ONE Stop: 08/16/21 09:47 Last Admin: 08/16/21 10:21 Dose: 40 mg Documented by: MICHAELA Vital Signs Vital signs: Vital Signs - 8 hr 08/16/21 10:00 08/16/21 10:30 08/16/21 11:00 Pulse Rate 76 73 77 Respiratory Rate 27 H 21 26 H Blood Pressure 165/88 H 181/90 H 168/84 H Pulse Oximetry 94 95 95 08/16/21 11:32 08/16/21 12:00 08/16/21 12:30 Pulse Rate 80 75 77 Respiratory Rate 24 23 Blood Pressure Pulse Oximetry 97 96 96 08/16/21 12:38 08/16/21 13:00 Pulse Rate 74 71 Respiratory Rate 24 21 Blood Pressure 178/81 H Pulse Oximetry 96 95 Medical Decision Making Lab Data Result diagrams: 08/16/21 09:55 08/16/21 09:55 Labs: Lab Results 08/16/21 08/16/21 08/16/21 Range/Units 09:55 09:55 10:00 WBC 18.9 H D (4.5-11.0) X10^3/uL RBC 4.59 (4.0-5.2) X10^6/uL Hgb 14.6 (12.0-16.0) g/dL Hct 41.7 (36-46) % MCV 90.8 (80-100) fL MCH 31.8 (26-34) PG MCHC 35.0 (30-36) % RDW 13.9 (11.6-14.8) % Plt Count 302 (150-400) X10^3/uL Neut % (Auto) 84.8 H (50-75) % Lymph % (Auto) 9.7 L (25-40) % [place] % (Auto) 5.2 (3-14) % Eos % (Auto) 0.0 L (2-4) % Baso % (Auto) 0.3 (0-2) % Neut # (Auto) 85623 H (4677-4958) /uL Lymph # (Auto) 1800 (6284-6770) /uL [place] # (Auto) 1000 H (0-900) /uL Eos # (Auto) 0 (0-450) /uL Baso # (Auto) 100 (0-100) /uL Sodium 131 L (137-145) mmol/L Potassium 3.3 L (3.4-5.1) mmol/L Chloride 92 L (98-107) mmol/L Carbon Dioxide 32 (22-32) mmol/L BUN 11 (7-17) mg/dL Creatinine 0.47 L (0.52-1.04) mg/dL Estimated GFR > 60 (>60) mL/min BUN/Creatinine Ratio 23.4 H (6-22) Glucose 123 H (70-100) mg/dL Calcium 9.3 (8.4-10.2) mg/dL Magnesium 1.9 (1.6-2.3) mg/dL Total Bilirubin 0.6 (0.2-1.3) mg/dL AST 39 H (14-36) IU/L ALT 35 H (<35) IU/L Alkaline Phosphatase 94 (38-126) U/L Total Protein 8.1 (6.3-8.2) g/dL Albumin 4.6 (3.5-5.0) g/dL Globulin 3.5 (1.7-4.1) g/dL Albumin/Globulin Ratio 1.3 (1.0-2.8) Lipase 34 (23-300) U/L Urine RBC (0-5/HPF) Urine WBC (0-5/HPF) Urine Bacteria (None) Ur Culture Indicated? SARS-CoV-2 (PCR) Negative (Negative) 08/16/21 Range/Units 12:00 WBC (4.5-11.0) X10^3/uL RBC (4.0-5.2) X10^6/uL Hgb (12.0-16.0) g/dL Hct (36-46) % MCV (80-100) fL MCH (26-34) PG MCHC (30-36) % RDW (11.6-14.8) % Plt Count (150-400) X10^3/uL Neut % (Auto) (50-75) % Lymph % (Auto) (25-40) % [place] % (Auto) (3-14) % Eos % (Auto) (2-4) % Baso % (Auto) (0-2) % Neut # (Auto) (1897-5417) /uL Lymph # (Auto) (7470-4131) /uL [place] # (Auto) (0-900) /uL Eos # (Auto) (0-450) /uL Baso # (Auto) (0-100) /uL Sodium (137-145) mmol/L Potassium (3.4-5.1) mmol/L Chloride (98-107) mmol/L Carbon Dioxide (22-32) mmol/L BUN (7-17) mg/dL Creatinine (0.52-1.04) mg/dL Estimated GFR (>60) mL/min BUN/Creatinine Ratio (6-22) Glucose (70-100) mg/dL Calcium (8.4-10.2) mg/dL Magnesium (1.6-2.3) mg/dL Total Bilirubin (0.2-1.3) mg/dL AST (14-36) IU/L ALT (<35) IU/L Alkaline Phosphatase (38-126) U/L Total Protein (6.3-8.2) g/dL Albumin (3.5-5.0) g/dL Globulin (1.7-4.1) g/dL Albumin/Globulin Ratio (1.0-2.8) Lipase (23-300) U/L Urine RBC 10-30/hpf H (0-5/HPF) Urine WBC None seen (0-5/HPF) Urine Bacteria None seen (None) Ur Culture Indicated? Cult not indicated SARS-CoV-2 (PCR) (Negative) Urine Dip Bedside Urine Glucose Negative Bedside Urine Bilirubin - Negative Bedside Urine Ketone +++ 80 Urine Specific [place] 1.010 Bedside Urine Protein +++ 300 Bedside Urine Urobilinogen - Negative Bedside Urine Nitrite - Negative Bedside Urine Leukocytes - Negative Esterase Point of care testing: Urine Dip Bedside Urine Glucose Negative Bedside Urine Bilirubin - Negative Bedside Urine Ketone +++ 80 Urine Specific [place] 1.010 Bedside Urine Protein +++ 300 Bedside Urine Urobilinogen - Negative Bedside Urine Nitrite - Negative Bedside Urine Leukocytes - Negative Esterase Imaging Data CT scan - abdomen/pelvis: Radiologist's Impression: FINDINGS:? Image quality:? Excellent.? ? Lung bases:? Unremarkable. Heart:? No significant findings. ? Distal esophagus:? The highest portion of the esophagus visualized on the study has diffuse wall thickening and edema.? Reference image 1 of series 2. ? ABDOMEN: Liver:? Unremarkable.? ? Gallbladder:? Surgically absent? ? Biliary ducts:? Unremarkable.? ? Pancreas:? Unremarkable.? ? Spleen:? Unremarkable.? ? Adrenal Glands:? Unremarkable.? ? Kidneys and Ureters:? Incidental note made of the presence of a left middle pole angiomyolipoma measuring 2.4 x 1.1 cm. ? Stomach and Bowel:? Moderate sigmoid diverticulosis without evidence of diverticulitis.? Peritoneum:? No abnormal intraperitoneal fluid.? No free air.? ? Ventral Wall: ? No hernias.? Abdominal Nodes:? No retroperitoneal or mesenteric adenopathy by size criteria.? Vessels:? Aorta and inferior vena cava are normal in size.? ? PELVIS: Pelvic Organs:? Uterus is surgically absent..? ? Bladder:? Unremarkable.? ? Pelvic Nodes: No enlarged lymph nodes.? Miscellaneous: No hernias are seen. ? ? ? Bones:? Lumbar degenerative change.? No lytic or blastic bony lesions.? No compression fractures. ? ? ? IMPRESSION:? ? 1. The most significant acute finding is on the top image of the study.? The wall of the esophagus is diffusely thickened and edematous. ? 2. No evidence of acute process in the abdomen and pelvis. ? 3. Incidental angiomyolipoma measuring 2.4 x 1.1 cm. ? 4. Moderate sigmoid diverticulosis.? ? Dictated by: Caleb Farooq M.D. on 08/16/2021 at 12:07? ?? MDM Narrative Medical decision making narrative: 55-year-old woman with 2nd visit for continued nausea and vomiting and complaints of epigastric pain from the nausea and vomiting. Has a slight increase in leukocytosis and is this is her 2nd visit, Zofran and Reglan have offered little help in controlling her nausea will obtain a CT scan of her abdomen. Blood cell count is elevated however neutrophil percentage is less than it was previously. I suspect that this is partially acute phase reactant. He does not have any additional signs of infection and CT scan of the abdomen is reassuring. CT shows wall of the esophagus to the diffusely thickened and edematous but no other acute intra-abdominal processes are infection. Patient is re-examined findings reviewed. She notes that she still has some discomfort but at least is finally feeling hungry for the 1st time in days. Is willing to try some ice water and crackers. When asked about medications for discharge pain seems to be the majority of the problem. She did have a couple oxycodone at home and found that it did made her feel funny and she would prefer not to have that. After of gallbladder surgery she had 2 mg of oral Dilaudid tablets and found that those were helpful because they seem to be less strong. Will have her try 1 here in the emergency department and as long as she tolerates that will discharge her home with a small prescription for the acute pain from the acute esophagitis from her persistent vomiting that hopefully now is under better control. She does have Zofran at home will make sure that she also has hydroxyzine. This will likely help with the overall itching related to her undiagnosed rash less dry skin and may potentiate the Zofran to help with nausea. Will ask for follow-up with her primary care physician. Discharge Plan Departure Patient Disposition: Home Clinical Impression: Esophagitis Nausea & vomiting Qualifiers: Vomiting type: unspecified Qualified Code(s): R11.2 - Nausea with vomiting, unspecified Instructions: DI for Vomiting -- Adult Activity Restrictions/Additional Instructions: Thank you for coming in today I am sorry that you are suffering so much. Your nausea seems to be a bit better after IV Reglan and fluids. I am going to have you try 2 mg of oral Dilaudid to see if this helps with the pain. On your CT scan, looks like your pain is related to swelling at the bottom of your esophagus which is likely due to all of the vomiting that you have been doing over the last week. I have given you a prescription for oral Dilaudid to help with the pain Zofran to help with the nausea I am going to also prescribed Additional hydroxyzine, this can help with nausea as well as the itching related to your rash All prescriptions were transmitted to [facility] in [place] Please begin eating and drinking slowly with sips of water increasing to simple food like rice, crackers, bananas, applesauce If symptoms worsen, please feel free to return to the emergency department Prescriptions: New hydromorphone [Dilaudid] 2 mg tablet 2 mg PO Q6H PRN (Reason: pain) Qty: 10 0RF hydroxyzine HCl 25 mg tablet 25 mg PO TID PRN (Reason: itching, nausea and vomiting) Qty: 20 0RF ondansetron 4 mg tablet,disintegrating 4 mg PO Q8H PRN (Reason: nausea and vomiting) Qty: 14 0RF No Action hydroxyzine HCl 25 mg tablet See Rx Instructions .ROUTE .COMPLEX Qty: 60 0RF Dose Instruction: TAKE 1 TABLET BY MOUTH AT BEDTIME NEEDED FOR SLEEP OR ANXIETY Rx Instructions: TAKE 1 TABLET BY MOUTH AT BEDTIME NEEDED FOR SLEEP OR ANXIETY escitalopram oxalate 20 mg tablet 10 mg PO DAILY Qty: 90 3RF alprazolam 0.5 mg tablet See Rx Instructions .ROUTE .COMPLEX Qty: 30 0RF Dose Instruction: TAKE 1 TABLET BY MOUTH DAILY NEEDED FOR ANXIETY Rx Instructions: TAKE 1 TABLET BY MOUTH DAILY NEEDED FOR ANXIETY ondansetron 4 mg tablet,disintegrating 4 mg PO Q6H PRN (Reason: nausea and vomiting) Qty: 14 0RF cyclobenzaprine 5 mg tablet 5 mg PO BEDTIME 0RF omeprazole 20 mg capsule,delayed release(DR/EC) 20 mg PO DAILY 0RF loratadine 10 mg capsule 10 mg PO DAILY 0RF Chantix Starting Month Box 0.5 mg (11)- 1 mg (42) tablets,dose pack See Rx Instructions PO PER PKG DIR Qty: 53 0RF Rx Instructions: PO PER PKG DIR ondansetron 4 mg tablet,disintegrating 4 mg PO Q8H PRN (Reason: nausea and vomiting) Qty: 10 0RF metoclopramide HCl [Reglan] 10 mg tablet 10 mg PO Q6H PRN (Reason: nausea and vomiting) Qty: 20 0RF Referrals: Juan Joseph MD [Primary Care Provider] -
[2021-08-16 10:11] LABS: Add Manual Diff / Slide Review NO; Basophils Absolute Auto 100 /uL (0-100); Basophils Percent Auto 0.3 % (0-2); Eosinophils Absolute Auto 0 /uL (0-450); Hematocrit 41.7 % (36-46); Hemoglobin 14.6 g/dL (12.0-16.0); Lymphocytes Absolute Auto 1800 /uL (1100-4500); Lymphocytes Percent Auto 9.7 % (25-40); Mean Corpuscular Hemoglobin 31.8 PG (26-34); Mean Corpuscular Volume 90.8 fL (80-100); Monocytes Absolute Auto 1000 /uL (0-900); Monocytes Percent Auto 5.2 % (3-14); Neutrophils Absolute Auto 16000 /uL (1500-7000); Neutrophils Percent Auto 84.8 % (50-75); Platelet Count 302 X10^3/uL (150-400); Red Blood Cell Count 4.59 X10^6/uL (4.0-5.2); Red Cell Distribution Width 13.9 % (11.6-14.8); White Blood Cell Count 18.9 X10^3/uL (4.5-11.0)
[2021-08-16] MEDS: PANTOPRAZOLE 40 MG VIAL IV (10:21)
[2021-08-16] MEDS: diphenhydrAMINE 50 MG/ML VIAL 25 MG IV (10:21)
[2021-08-16] MEDS: METOCLOPRAMIDE 10 MG/2 ML INJ IV (10:21)
[2021-08-16 10:22] LABS: Alanine Aminotransferase 35 IU/L (<35); Albumin 4.6 g/dL (3.5-5.0); Albumin Globulin Ratio 1.3 (1.0-2.8); Alkaline Phosphatase 94 U/L (38-126); Aspartate Aminotransferase 39 IU/L (14-36); BUN Creatinine Ratio 23.4 (6-22); Bilirubin Total 0.6 mg/dL (0.2-1.3); Blood Urea Nitrogen 11 mg/dL (7-17); Calcium 9.3 mg/dL (8.4-10.2); Carbon Dioxide 32 mmol/L (22-32); Chloride 92 mmol/L (98-107); Estimated Glomerular Filt Rate > 60 mL/min (>60); Globulin 3.5 g/dL (1.7-4.1); Glucose 123 mg/dL (70-100); HEMOLYSIS < 15 (0-50); Lipase 34 U/L (23-300); Magnesium 1.9 mg/dL (1.6-2.3); Potassium 3.3 mmol/L (3.4-5.1); Sodium 131 mmol/L (137-145); Total Protein 8.1 g/dL (6.3-8.2)
[2021-08-16] MEDS: SODIUM CHLORIDE 0.9% 1,000 ML 1000 ML IV (10:22)
--- NOTE | 2021-08-16 11:13 | DI.CT.S_ITS ---
PROCEDURE: CT ABDOMEN PELVIS W CON INDICATIONS: abdominal pain with leukocytosis and persistent vomiting TECHNIQUE: After the administration of intravenous contrast, axial sections acquired from the lung bases to the pubic symphysis. Coronal and sagittal reformats were performed. For radiation dose reduction, the following was used: automated exposure control, adjustment of mA and/or kV according to patient size. COMPARISON: None. FINDINGS: Image quality: Excellent. Lung bases: Unremarkable. Heart: No significant findings. Distal esophagus: The highest portion of the esophagus visualized on the study has diffuse wall thickening and edema. Reference image 1 of series 2. ABDOMEN: Liver: Unremarkable. Gallbladder: Surgically absent Biliary ducts: Unremarkable. Pancreas: Unremarkable. Spleen: Unremarkable. Adrenal Glands: Unremarkable. Kidneys and Ureters: Incidental note made of the presence of a left middle pole angiomyolipoma measuring 2.4 x 1.1 cm. Stomach and Bowel: Moderate sigmoid diverticulosis without evidence of diverticulitis. Peritoneum: No abnormal intraperitoneal fluid. No free air. Ventral Wall: No hernias. Abdominal Nodes: No retroperitoneal or mesenteric adenopathy by size criteria. Vessels: Aorta and inferior vena cava are normal in size. PELVIS: Pelvic Organs: Uterus is surgically absent.. Bladder: Unremarkable. Pelvic Nodes: No enlarged lymph nodes. Miscellaneous: No hernias are seen. Bones: Lumbar degenerative change. No lytic or blastic bony lesions. No compression fractures. IMPRESSION: 1. The most significant acute finding is on the top image of the study. The wall of the esophagus is diffusely thickened and edematous. 2. No evidence of acute process in the abdomen and pelvis. 3. Incidental angiomyolipoma measuring 2.4 x 1.1 cm. 4. Moderate sigmoid diverticulosis. Dictated by: Caleb Farooq M.D. on 08/16/2021 at 12:07 Approved by: Caleb Farooq M.D. on 08/16/2021 at 12:12
[2021-08-16 11:17] LABS: COVID19 -Nasal RAPID Negative (Negative)
[2021-08-16] MEDS: ONDANSETRON 4 MG/2 ML INJ IV (11:29)
[2021-08-16 12:17] LABS: Bacteria Urine None Seen; Culture Indicated Urine Cult Not Indicated; RBC Urine 10-30/HPF (0-5/HPF); WBC Urine None Seen (0-5/HPF)
[2021-08-16] MEDS: HYDROMORPHONE 2 MG TABLET PO (13:43)
== END 2021-08-16 14:23 | disposition home or self-care (01) ==
PROVIDERS: Emergency Provider Emergency Medicine; PCP Family Medicine
DX: K20.90 Esophagitis, unspecified without bleeding (principal); R11.2 Nausea with vomiting, unspecified; R21 Rash and other nonspecific skin eruption; R10.13 Epigastric pain; Z20.822 Contact with and (suspected) exposure to COVID-19
CPT/HCPCS: 36415; 74177; 80053; 81003; 81015; 83690; 83735; 85025; 87635; 96361; 96374; 96375; 99284; C9803; C9113; J1200; J2405; J2765

== ENCOUNTER → 2021-12-09 09:02 | Outpatient (CLI) | payer OTHER, SELFPAY ==
[2021-12-09 10:04] LABS: Add Manual Diff / Slide Review NO; Basophils Absolute Auto 0 /uL (0-100); Basophils Percent Auto 0.5 % (0-2); Eosinophils Absolute Auto 200 /uL (0-450); Eosinophils Percent Auto 2.1 % (2-4); Hematocrit 40.6 % (36-46); Hemoglobin 14.1 g/dL (12.0-16.0); Lymphocytes Absolute Auto 1700 /uL (1100-4500); Lymphocytes Percent Auto 17.5 % (25-40); Mean Corpuscular HGB Conc 34.7 % (30-36); Mean Corpuscular Hemoglobin 32.7 PG (26-34); Mean Corpuscular Volume 94.1 fL (80-100); Monocytes Absolute Auto 600 /uL (0-900); Monocytes Percent Auto 6.5 % (3-14); Neutrophils Absolute Auto 7200 /uL (1500-7000); Neutrophils Percent Auto 73.4 % (50-75); Platelet Count 345 X10^3/uL (150-400); Red Blood Cell Count 4.32 X10^6/uL (4.0-5.2); White Blood Cell Count 9.7 X10^3/uL (4.5-11.0)
[2021-12-09 10:46] LABS: Alanine Aminotransferase 18 IU/L (<35); Albumin 4.3 g/dL (3.5-5.0); Albumin Globulin Ratio 1.4 (1.0-2.8); Alkaline Phosphatase 83 U/L (38-126); Aspartate Aminotransferase 26 IU/L (14-36); Bilirubin Total 0.5 mg/dL (0.2-1.3); Blood Urea Nitrogen 11 mg/dL (7-17); Calcium 9.8 mg/dL (8.4-10.2); Carbon Dioxide 27 mmol/L (22-32); Chloride 102 mmol/L (98-107); Estimated Glomerular Filt Rate > 60 mL/min (>60); Glucose 94 mg/dL (70-100); HEMOLYSIS < 15 (0-50); Potassium 4.7 mmol/L (3.4-5.1); Sodium 138 mmol/L (137-145); Total Protein 7.3 g/dL (6.3-8.2)
[2021-12-09 11:08] LABS: TSH w/ Reflex to FT4 2.74 uIU/mL (0.47-4.68)
== END ==
PROVIDERS: PCP Family Medicine; Referring Provider Family Medicine; Visit Provider Family Medicine
DX: D72.829 Elevated white blood cell count, unspecified (principal); K20.90 Esophagitis, unspecified without bleeding
CPT/HCPCS: 36415; 80053; 84443; 85025

== ENCOUNTER → 2022-09-12 09:16 | Outpatient (CLI) | payer OTHER, SELFPAY ==
[2022-09-12 11:47] LABS: Add Manual Diff / Slide Review NO; Basophils Absolute Auto 100 /uL (0-100); Basophils Percent Auto 0.9 % (0-2); Eosinophils Absolute Auto 300 /uL (0-450); Eosinophils Percent Auto 3.5 % (2-4); Hematocrit 39.4 % (36-46); Hemoglobin 13.5 g/dL (12.0-16.0); Lymphocytes Absolute Auto 1800 /uL (1100-4500); Lymphocytes Percent Auto 19.3 % (25-40); Mean Corpuscular HGB Conc 34.4 % (30-36); Mean Corpuscular Hemoglobin 32.6 PG (26-34); Mean Corpuscular Volume 94.9 fL (80-100); Monocytes Absolute Auto 700 /uL (0-900); Monocytes Percent Auto 7.2 % (3-14); Neutrophils Absolute Auto 6400 /uL (1500-7000); Neutrophils Percent Auto 69.1 % (50-75); Platelet Count 366 X10^3/uL (150-400); Red Blood Cell Count 4.14 X10^6/uL (4.0-5.2); Red Cell Distribution Width 14.6 % (11.6-14.8); White Blood Cell Count 9.3 X10^3/uL (4.5-11.0)
[2022-09-12 12:16] LABS: Alanine Aminotransferase 28 IU/L (<35); Albumin 4.2 g/dL (3.5-5.0); Albumin Globulin Ratio 1.4 (1.0-2.8); Alkaline Phosphatase 88 U/L (38-126); Aspartate Aminotransferase 38 IU/L (14-36); BUN Creatinine Ratio 23.2 (6-22); Bilirubin Total 0.3 mg/dL (0.2-1.3); Blood Urea Nitrogen 13 mg/dL (7-17); Calcium 9.4 mg/dL (8.4-10.2); Carbon Dioxide 27 mmol/L (22-32); Chloride 104 mmol/L (98-107); Estimated Glomerular Filt Rate > 60 mL/min (>60); Globulin 3.1 g/dL (1.7-4.1); Glucose 85 mg/dL (70-100); HEMOLYSIS < 15 (0-50); Potassium 4.3 mmol/L (3.4-5.1); Sodium 137 mmol/L (137-145); Total Protein 7.3 g/dL (6.3-8.2)
[2022-09-12 12:41] LABS: TSH w/ Reflex to FT4 2.35 uIU/mL (0.47-4.68)
[2022-09-12 12:58] LABS: Hep C Virus Ab w/Reflex Quant NEGATIVE s/c (NEGATIVE)
== END ==
PROVIDERS: PCP Family Medicine; Referring Provider Family Medicine; Visit Provider Family Medicine
DX: F41.9 Anxiety disorder, unspecified (principal); G89.29 Other chronic pain; L98.9 Disorder of the skin and subcutaneous tissue, unspecified; R21 Rash and other nonspecific skin eruption; M54.9 Dorsalgia, unspecified
CPT/HCPCS: 36415; 80053; 84443; 85025; 86803

== ENCOUNTER → 2022-11-01 08:39 | Outpatient (CLI) | payer OTHER, SELFPAY ==
--- NOTE | 2022-11-01 08:41 | DI.MG.S_ITS ---
BILATERAL DIGITAL SCREENING MAMMOGRAM 3D/2D WITH CAD: 11/01/2022 CLINICAL: Routine screening. Comparison is made to exams dated: 12/09/2020 mammogram, 01/15/2020 mammogram, and 02/17/2019 mammogram - [facility]. Both breasts are heterogeneously dense, which may obscure small masses (category c / 51-75% glandular tissue). Current study was also evaluated with a Computer Aided Detection (CAD) system. There are benign calcifications in both breasts. No significant masses, calcifications, or other findings are seen in either breast. There has been no significant interval change. IMPRESSION: BENIGN There is no mammographic evidence of malignancy. A 1 year screening mammogram is recommended. Based on the Tyrer Cuzick model (a risk assessment model) the patient's lifetime risk is 12.7% and her 10 year risk is 3.9%. According to the ACR, ACS, and NCCN guidelines, an annual breast MRI exam along with mammogram is recommended if the patient's lifetime risk is 20% or greater. This exam was interpreted at Station ID: [id number]. NOTE: For mammograms, a report in lay terms will be sent to the patient. Approximately 15% of breast malignancies will not be visualized mammographically. In the management of a palpable breast mass, a negative mammogram must not discourage biopsy of a clinically suspicious lesion. Electronically Signed By: Bentley ward/shannen:11/01/2022 09:41:49 letter sent: Normal Exam ACR BI-RADS Category 2: Benign Finding(s) [id number]
== END ==
PROVIDERS: PCP Family Medicine; Referring Provider Family Medicine; Visit Provider Family Medicine
DX: Z12.31 Encounter for screening mammogram for malignant neoplasm of breast (principal)
CPT/HCPCS: 77063; 77067